=== PATIENT | male | born 2000 | race Caucasian/White ===

== ENCOUNTER 2025-07-27 16:58 | Emergency (ER) | payer OTHER ==
[~2025-07-27] VITALS: Ht 177.8 cm; Wt 81.5 kg
[2025-07-27 17:02] VITALS: BP 130/77; TEMP 97.1; O2SAT 100
[2025-07-27] MEDS: LIDOCAINE 1% MDV 20 ML VIAL SC ONE (17:30)
== END 2025-07-27 18:49 | disposition home or self-care (01) ==
LOC: M ED 16:58
DX: S61.412A Laceration without foreign body of left hand, initial encounter (principal); S61.211A Laceration without foreign body of left index finger without damage to nail, initial encounter; W26.8XXA Contact with other sharp object(s), not elsewhere classified, initial encounter; Y92.009 Unspecified place in unspecified non-institutional (private) residence as the place of occurrence of the external cause; Y93.D9 Activity, other involving arts and handcrafts; Y99.9 Unspecified external cause status